=== PATIENT | female | born 1985 | race Caucasian/White ===

== ENCOUNTER 2016-09-24 13:55 | Emergency (ER) | payer BC, OTHER ==
--- OUTSIDE RECORDS SUMMARY | 2016-09-24 14:39 | XMS REPORT | Continuity of Care Document ---
:1985 Demographics Phone Unavailable Preferred Language Unknown Marital Status Unknown Sabianist Affiliation Unknown Race Unknown Ethnic Group Unknown Author Organization [facility] ([facility]) [place] [address] Phone [phone] Care Team Providers Name Role Phone Unavailable Primary Care Provider Unavailable Source Comments This disclosure is being made pursuant to the Care Everywhere program, applicable federal and state laws, and may not contain all informaitonavailable regarding this patient.[facility] ([facility]) Active Allergies and Adverse Reactions Not on File Current Medications Not on file Active Problems Not on file Social History Tobacco Use Types Packs/Day Years Used Date Never Assessed Plan of Care Health Maintenance Due Date Last Done Comments Hepatitis B Vaccine (1 of 3 - Primary Series) 1985 Tdap Vaccine 1994 Lipid Disorder Screening 2001 MMR Vaccine 2001 Td Vaccine 2001 Varicella Vaccine (1 of 2 - Adult - No Evidence of 2001 Immunity) Cervical Cancer Screening 2013 Influenza Vaccine: Seasonal (#1) 03/07/2016 Results from Last 3 Months Not on file
--- OUTSIDE RECORDS SUMMARY | 2016-09-24 14:39 | XMS REPORT | Continuity of Care Document ---
:1985 Author Organization [facility] [place] [address] Care Team Providers Name Role Phone Jurgen Deyr Primary Care Provider [phone] Source Comments This disclosure is being made pursuant to the [employer] program and maynot contain all information available regarding this patient.[facility] Active Allergies and Adverse Reactions Allergen Noted Date Severity Reactions Comments Ceclor 12/14/2015 Other (See Comments) Pt stated she was given this as a child and was told she had an allergy to this medication. Sulfa Antibiotics 12/14/2015 Medium Nausea And Vomiting Current Medications Be aware that medications may not be up to date as of this document. Alwaysverify current medications with the patient. Prescription Sig. Disp. Refills Start Date End Date Status venlafaxine HCl 11 12/08/2015 Active (EFFEXOR-XR) 75 MG 24 hr capsule ibuprofen (ADVIL,MOTRIN) Take 800 mg by Active 800 MG tablet mouth every 8 (eight) hours as needed for Pain. [id number] 02/02/2016 Active ortisone (CORTISPORIN) 3.5-69096-2 otic suspension Active Problems Problem Noted Date Flank pain 12/15/2015 Microhematuria 12/14/2015 Most Recent Encounters Date Type Specialty Providers Description 07/21/2016 Data Import Social History Tobacco Use Types Packs/Day Years Used Date Never Smoker Smokeless Tobacco: Never Used Alcohol Use Drinks/Week oz/Week Comments Yes On rare occassions. Last Filed Vital Signs Vital Sign Reading Time Taken Blood Pressure 128/82 02/03/2016 2:04 PM CDT Pulse 88 02/03/2016 2:04 PM CDT Temperature 36.9 C (98.4 F) 02/03/2016 2:04 PM CDT Respiratory Rate 18 02/03/2016 2:04 PM CDT Height 1.549 m (5' 1") 02/03/2016 2:04 PM CDT Weight 61.236 kg (135 lb) 02/03/2016 2:04 PM CDT Body Mass Index 25.52 02/03/2016 2:04 PM CDT Oxygen Saturation - - Plan of Care Health Maintenance Due Date Last Done Comments Tetanus/Pertussis (1 - Tdap) 2002 Pap Smear 2004 Influenza Immunization (#1) 2016 Results from Last 3 Months Not on file
[2016-09-24 14:56] LABS: Hematocrit 39.4 % (37.0-47.0); Hemoglobin 13.2 gm/dL (12.5-16.0); Mean Cell Volume 83.1 fl (78-100); Mean Corpuscular Hemoglobin 27.8 pg (27-31); Mean Corpuscular Hgb Conc 33.5 g/dl (32-36); Mean Platelet Volume 9.4 fl (6.0-9.5); Neutrophil % 73.3 % (42-75.0); Platelet Count 359 K/mm3 (150-450); Red Blood Count 4.74 M/mm3 (4.2-5.4); Red Cell Distribution Width 12.5 % (11.5-14.0); White Blood Count 9.6 K/mm3 (4.0-10.5)
[2016-09-24 15:10] LABS: Anion Gap 9.4 mmol/L (6.8-13.8); BUN/Creatinine Ratio 15.7 (9.0-21.6); Carbon Dioxide 30.1 mmol/L (24-32.6); Estimated Creat Clear 86.3; Potassium 3.5 mmol/L (3.4-4.6)
--- NOTE | 2016-09-24 15:17 | ERNOTE ---
ER Female HPI Date of Service: 09/24/16 Stated Complaint: BLEEDING,CRAMPING 6 WKS Presenting Symptoms: vaginal bleeding Time Seen by Provider: 09/24/16 14:26 Source: patient, family Exam Limitations: no limitations Immunizations: IMMUNIZATION HX Immunizations Up to Date Yes History of Influenza Vaccine No Allergies/Adverse Reactions: Allergies cefaclor [From Ceclor] Allergy (Verified 07/25/14 12:47) Home Medications: HOME MEDICATIONS Vit#96/Ferrous Fum/FA [ S] 1 tab PO DAILY 07/25/14 [Last Taken 07/24/14 2100] Venlafaxine HCl [Effexor Xr] 75 mg PO DAILY 07/25/14 [Last Taken 07/24/14 2100] - History of Present Illness Narrative: LMP was Aug 16, 2016. Periods are regular. Recent home test positive. Yesterday began to have mild vaginal spotting. Today, more constant bleeding, though the amount is small, associated with mild low midline pelvic cramping. No fever or other symptoms. She has had two previous pregnancies which resulted in healthy children. Timing: Present: constant Quality: Present: mild Onset Location: Present: suprapubic Radiation: Present: none Activities at Onset: Present: none Prior Abdominal Problems: Present: none Associated Symptoms: Present: denies symptoms Prior Treatment: Absent: recently seen, currently on antibiotics Review of Systems - Review of Systems Constitutional: Present: no symptoms reported EYE: Present: no symptoms reported ENT: Present: no symptoms reported Respiratory: Present: no symptoms reported Cardiology: Present: no symptoms reported Gastrointestinal/Abdominal: Present: no symptoms reported Genitourinary: Present: See HPI Musculoskeletal: Present: no symptoms reported Skin: Present: no symptoms reported Neurological: Present: no symptoms reported Endocrine: Present: no symptoms reported Hematologic/Lymphatic: Present: no symptoms reported Psych: Present: no symptoms reported All Other Systems: All systems neg except as marked - Patient's Past Medical History Patient History - Medical: Anxiety Patient History - Cardiac/Respiratory: No pertinent hx Patient History - Cancer: No Hx of Cancer Patient History - Surgical Procedures: No surgical history Patient History - Other: None - Social History Psych History: Hx of Anxiety, Current tx/ever been on anti-depressants or anti- anxiety meds Smoking Status: Never smoker Have you smoked in the past 12 months: No Do you dip or chew tobacco: No Alcohol Use: none Drug Use: none - Immunizations Immunizations Up to Date: Yes History of Influenza Vaccine: No Physical Exam - Physical Exam General Appearance: Present: wd/wn, alert, no apparent distress Eye Exam: Normal inspection: bilateral, PERRL: bilateral, EOMI: bilateral Ears, Nose, Throat: Present: normal ENT inspection, hearing grossly normal Neck: Present: normal inspection Respiratory: Present: no respiratory distress, normal breath sounds Cardiovascular/Chest: Present: regular rate, rhythm, no murmur Gastrointestinal/Abdominal: Present: normal bowel sounds, nontender, nondistended, soft, no organomegaly Back Exam: Present: normal inspection, no CVA tenderness, no vertebral tenderness Extremity Exam: Present: normal inspection, non-tender, no edema Neurological Exam: Present: alert, oriented, normal mood/affect Skin Exam: Present: normal color, warm/dry ED Progress - Results and Orders Patient's Lab Results:: I have reviewed the patient's lab results. - Vital Signs Patient's Vital Signs:: I have reviewed the patient's vital signs. Vital Signs: Vital Signs 09/24/16 14:07 Temperature 36.4 C Pulse Rate 91 Respiratory 14 Rate Blood Pressure 148/89 O2 Sat by Pulse 100 Oximetry - CT/Ultrasound CT/Ultrasound Narrative: reviewed ultrasound report, small uterine fibroids and corpus luteum cyst. - Progress/Reassessment Chief Complaint: Genitourinary Problem Departure Clinical Impression: Missed with demise before 20 completed weeks of gestation - Departure Disposition: Home self-care Condition: Good Instructions: Vaginal Bleeding During , First Trimester Additional Instructions: Keep appt with Dr. Gay
[2016-09-24 16:00] LABS: Urine Appearance Slightly Cloudy; Urine Bilirubin Negative (NEGATIVE); Urine Blood 250 /ul (NEGATIVE); Urine Color Yellow; Urine Ketone Negative (NEGATIVE); Urine Nitrite Negative (NEGATIVE); Urine Protein Negative (NEGATIVE); Urine Urobilinogen Normal (NORMAL); Urine WBC 0-5 /hpf (0-5); Urine pH 7.5 pH (5.0-7.0)
[2016-09-24 16:01] LABS: Urine Bacteria None Seen
[2016-09-24 17:07] VITALS: BP 149/87
== END 2016-09-24 17:46 | disposition home or self-care (01) ==
LOC: ER 13:55
DX: O02.1 Missed abortion (principal); Z3A.01 Less than 8 weeks gestation of pregnancy; F41.9 Anxiety disorder, unspecified